=== PATIENT | male | born 1975 | race Caucasian/White ===

== ENCOUNTER 2021-01-24 10:42 | Emergency (ER) | payer SELFPAY ==
[2021-01-24] MEDS ORDERED: PREDNISONE 20 M20 MG PO (11:44)
[2021-01-24] MEDS ORDERED: HYDROCODON-ACE1 EAC4 PO ×2 (12:11→12:29)
== END 2021-01-24 12:32 | disposition home or self-care (01) ==
LOC: ER1 10:42
DX: G56.03 Carpal tunnel syndrome, bilateral upper limbs (principal); Z88.0 Allergy status to penicillin; Z88.6 Allergy status to analgesic agent
CPT/HCPCS: 96372; 99283; J1885; J2360